=== PATIENT | male | born 1990 | race Caucasian/White ===

== ENCOUNTER 2019-03-17 18:29 | Emergency (ER) | payer SELFPAY | END 2019-03-17 19:51 | disposition home or self-care (01) | LOC: FTE 18:29 | DX: S61.234A Puncture wound without foreign body of right ring finger without damage to nail, initial encounter (principal); W22.8XXA Striking against or struck by other objects, initial encounter; Y92.9 Unspecified place or not applicable | CPT/HCPCS: 99283 ==